=== PATIENT | male | born 1990 | race Caucasian/White ===

== ENCOUNTER 2019-06-26 01:05 | Emergency (ER) | payer OTHER ==
[~2019-06-26] VITALS: Ht 180.3 cm; Wt 72.6 kg
[2019-06-26 01:14] VITALS: BP 106/61
--- NOTE | 2019-06-26 02:30 | NUR ---
28 Y/O MALEBIB SELF WITH REPORTS OF TOOTH PAIN STARTING YESTERDAY AND GETTING WORSE. PAIN REPORTED IN BOTTOM LEFT MOLAR. HAS NOT SEEN DENTIST. PAIN IS A 10/10 SHARP; THROBBING PAIN NOTED ON THE LEFT MOLAR TO LEFT JAW AND LEFT-SIDE OF FACE AND HEAD. PATIENT STATES HE HAS VOMITED TO DUE TO THE PAIN; NO DIARRHEA NOTED. PAIN UPON PALPATION; NO FACIAL EDEMA NOTED. MOUTH IS PINK AND MOIST. ERMD MADE AWARE OF STATUS. SIDE RAILSX1. PMH:NONE RX:NONE NKDA
[2019-06-26] MEDS: HYDROcodone/APAP 5/325 MG 1 TAB TAB PO ONE (04:13)
[2019-06-26 04:29] VITALS: BP 106/61
--- NOTE | 2019-06-26 04:29 | NUR ---
Patient discharged with v/s stable. Written and verbal after care instructions given and explained. Patient alert, oriented and verbalized understanding of instructions. Ambulatory with steady gait. All questions addressed prior to discharge. ID band removed. Patient advised to follow up with PMD. Rx of IBUPROFEN; NORCO given. Patient educated on indication of medication including possible reaction and side effects. Opportunity to ask questions provided and answered. PT. ACCOMPANIED BY GIRLFRIEND.
== END 2019-06-26 04:29 | disposition home or self-care (01) ==
LOC: MED 01:05
DX: K01.1 Impacted teeth (principal); F12.90 Cannabis use, unspecified, uncomplicated
CPT/HCPCS: 99283